=== PATIENT | female | born 1995 | race Two or more races ===

== ENCOUNTER 2024-06-22 09:11 | Emergency (ER) | payer MEDICAID, OTHER ==
[~2024-06-22] VITALS: Ht 172.7 cm; Wt 100.0 kg
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
[2024-06-22 10:05] LABS: Basophils # (auto) 0.1 10 ^3/uL (0-0.2); Eosinophils # (auto) 0.1 10 ^3/uL (0-0.8); Hemoglobin 12.3 g/dL (12.2-16.2); Lymphocytes # (auto) 1.9 10 ^3/uL (0.4-5.4); Red Cell Distribution Width 14.8 % (11.8-14.3); White Blood Cell 8.2 10^3/uL (4.4-10.8)
[2024-06-22 10:08] LABS: Basophils % (auto) 0.8 % (0.0-2.0); Eosinophils % (auto) 1.7 % (0.0-7.0); Hematocrit 37.3 % (36.0-46.0); Lymphocytes % (auto) 23.6 % (10.0-50.0); Mean Corpuscular Hemoglobin 24.8 pg (28.0-32.0); Mean Corpuscular Hgb Conc. 33.1 g/dL (32.0-36.0); Mean Corpuscular Volume 74.9 fL (80.0-100.0); Monocytes # (auto) 0.5 10 ^3/uL (0-1.3); Monocytes % (auto) 6.4 % (0.0-12.0); Neutrophils # (auto) 5.6 10 ^3/uL (1.6-8.6); Neutrophils % (auto) 67.5 % (37.0-80.0); Nucleated Red Blood Cells % 0.1 %; Platelet Count (auto) 279 10^3/uL (140-450); Red Blood Cells 4.98 10^6/uL (4.0-5.20)
[2024-06-22 10:13] LABS: Chloride 106 mmol/L (98-107); Sodium 142 mmol/L (136-145)
[2024-06-22 10:14] LABS: Anion Gap 11 (5-15); Carbon Dioxide 25 mmol/L (20-31)
[2024-06-22 10:15] LABS: Calcium 10.2 mg/dL (8.7-10.4)
[2024-06-22 10:19] LABS: BUN/Creatinine Ratio 11.7 (10.0-20.0); Blood Urea Nitrogen 9 mg/dL (9-23)
[2024-06-22 10:20] LABS: Glucose 72 mg/dL (74-106); Potassium 3.4 mmol/L (3.5-5.1)
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
[2024-06-22] MEDS ORDERED: IBU600T PO (11:45)
[2024-06-22 11:56] VITALS: BP 123/79; PULSE 92; RESP 15; TEMP 98.8; O2SAT 96
[2024-06-23] MEDS ORDERED: METH-1181 PO (13:49)
--- NOTE | 2024-06-26 15:00 | ECG ---
[facility] Test Date: 2024-06-22 Test Time: 09:16:57 Pat Name: NILSON HART Department: ED Room: Gender: F Attendant Child Activity: JEFFERSON : 1995 Requested By: EMMIE PELLETIER Order Number: [id number] Reading MD: Fabio Campbell Measurements Intervals [place] Rate: 104 P: 55 ID: [id number] QRS: 47 QRSD: 113 T: 25 QT: 367 QTc: 483 Interpretive Statements Sinus tachycardia Incomplete right bundle branch block Low voltage, precordial leads Borderline prolonged QT interval Electronically Signed On 06-26-2024 15:32:38 PDT by Fabio Campbell Please click the below link to view image of tracing.
== END 2024-06-22 12:04 | disposition home or self-care (01) ==
LOC: EDBD 09:11 → ER 09:11
DX: S30.1XXA Contusion of abdominal wall, initial encounter (principal); Z88.0 Allergy status to penicillin; V43.52XA Car driver injured in collision with other type car in traffic accident, initial encounter; Y93.89 Activity, other specified; Y92.410 Unspecified street and highway as the place of occurrence of the external cause; Y99.8 Other external cause status
CPT/HCPCS: 36415; 74176; 80048; 81025; 85025

== ENCOUNTER 2024-06-23 11:48 | Emergency (ER) | payer MEDICAID, OTHER ==
[~2024-06-23] VITALS: Ht 167.6 cm; Wt 101.2 kg
[~2024-06-23 11:48] MED LIST: IBU600T PO
[2024-06-23 12:24] LABS: Basophils # (auto) 0.1 10 ^3/uL (0-0.2); Eosinophils # (auto) 0.1 10 ^3/uL (0-0.8); Eosinophils % (auto) 1.6 % (0.0-7.0); Hemoglobin 11.5 g/dL (12.2-16.2); Lymphocytes # (auto) 2.2 10 ^3/uL (0.4-5.4); Monocytes # (auto) 0.5 10 ^3/uL (0-1.3); Neutrophils # (auto) 3.9 10 ^3/uL (1.6-8.6); Nucleated Red Blood Cells % 0.1 %; White Blood Cell 6.8 10^3/uL (4.4-10.8)
[2024-06-23 12:26] LABS: Basophils % (auto) 1.3 % (0.0-2.0); Lymphocytes % (auto) 32.1 % (10.0-50.0); Mean Corpuscular Hemoglobin 24.9 pg (28.0-32.0); Mean Corpuscular Volume 75.5 fL (80.0-100.0); Monocytes % (auto) 7.9 % (0.0-12.0); Neutrophils % (auto) 57.1 % (37.0-80.0); Platelet Count (auto) 259 10^3/uL (140-450); Red Blood Cells 4.63 10^6/uL (4.0-5.20); Red Cell Distribution Width 15.2 % (11.8-14.3)
[2024-06-23 12:36] VITALS: BP 118/70; PULSE 83; RESP 16; TEMP 98; O2SAT 98
[2024-06-23 12:40] LABS: Sodium 141 mmol/L (136-145)
[2024-06-23 12:41] LABS: Anion Gap 8 (5-15); Calcium 9.7 mg/dL (8.7-10.4); Carbon Dioxide 26 mmol/L (20-31); Chloride 107 mmol/L (98-107); Potassium 3.4 mmol/L (3.5-5.1)
[2024-06-23 12:46] LABS: BUN/Creatinine Ratio 12.1 (10.0-20.0); Blood Urea Nitrogen 7 mg/dL (9-23); Glucose 89 mg/dL (74-106)
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
[2024-06-23] MEDS: HYDROcodone-ACET 5/325MG TAB PO ONE (13:01)
[2024-06-23] MEDS: KETOROLAC TROMETH 30 MG/ML 1ML VIAL IM ONE (13:02)
--- NOTE | 2024-06-23 13:47 | DVH ---
EXAM: XY L KNEE 3V XRAY HISTORY: Pain. R/o fracture COMPARISON: None TECHNIQUE: 3 views of the left knee were performed. FINDINGS: No acute fracture is identified about the left knee. No significant joint space narrowing. No evide nce of significant joint effusion. IMPRESSION: No fracture or significant degenerative changes of the left knee.
[2024-06-23] MEDS ORDERED: METH-1181 PO (13:49)
== END 2024-06-23 14:33 | disposition home or self-care (01) ==
LOC: ER 11:48
DX: M79.18 Myalgia, other site (principal); Z88.0 Allergy status to penicillin; V43.52XA Car driver injured in collision with other type car in traffic accident, initial encounter; Y93.89 Activity, other specified; Y92.410 Unspecified street and highway as the place of occurrence of the external cause; Y99.8 Other external cause status
CPT/HCPCS: 36415; 73562; 80048; 85025; 96372; 99284; J1885